=== PATIENT | female | born 1990 | race Caucasian/White ===

== ENCOUNTER 2019-04-06 10:05 | Inpatient (IN) | payer OTHER ==
[2019-04-06] MEDS ORDERED: LIDOCAINE 0.5% (PF) 5 MG/ML (50 ML SDV) SQ PRN (10:16)
[2019-04-06] MEDS ORDERED: METHYLERGONOVINE 0.2 MG/ML 1 ML AMP IM PRN (10:16)
[2019-04-06] MEDS ORDERED: CARBOPROST TROMETHAMINE 250 MCG/ML 1 ML AMP IM PRN (10:16)
[2019-04-06] MEDS ORDERED: TERBUTALINE 1 MG/ML VIAL SQ PRN (10:16)
[2019-04-06] MEDS ORDERED: OXYTOCIN 10 UNIT/ML 1 ML VIAL IM PRN (10:16)
[2019-04-06] MEDS ORDERED: OXYTOCIN 30 UNITS/500 ML NS 30 UNIT in SALINE 1 500ML.BAG IV SCH (10:30)
[2019-04-06] MEDS: LACTATED RINGERS 1,000 ML IV SCH ×3 (10:35→15:48)
[2019-04-06 11:01] VITALS: RESP 16; BMI 31.5
[2019-04-06 11:13] LABS: Basophils % (A) 0 %; Eosinophils # (A) 0.1 k/uL (0-0.7); Eosinophils % (A) 1 %; HCT 35.8 % (34.0-46.0); HGB 11.3 gm/dL (11.4-16.0); Lymphocytes # (A) 1.7 k/uL (1.0-4.8); Lymphocytes % (A) 18 %; MCH 29.6 pg (25.0-35.0); MCHC 31.7 g/dL (31.0-37.0); MCV 93.4 fL (80.0-100.0); Mean Platelet Volume 8.8; Monocytes # (A) 0.4 k/uL (0-1.0); Monocytes % (A) 4 %; Neutrophils % (A) 74 %; Platelet Count 156 k/uL (150-450); RBC 3.83 m/uL (3.80-5.40); WBC 9.4 k/uL (3.8-10.6)
--- NOTE | 2019-04-06 12:19 | P.HPOB ---
History of Present Illness H&P Date: 04/06/19 This is a 28 year old 4 para 2012 woman at 40-4/7 weeks' gestation. Estimated due date is 04/02/2019 based on LMP consistent with second trimester ultrasound. She was seen for routine visit and monitoring for postdates status and was found to have an amniotic fluid index less than 6 cm. She has a favorable cervix therefore is admitted for induction of labor. Her has been otherwise uncomplicated. She had a previous with macrosomia however ultrasound for growth monitoring in this shows estimated weights consistently less than 50th percentile. She otherwise has been feeling well and denies regular contractions, vaginal bleeding, leakage of fluids. She reports good movement. Laboratory data: Blood type O+, group B strep negative. antibody screen negative, rubella immune, VDRL nonreactive, hepatitis B surface antigen negativ e, gonorrhea and clinic cultures negative, HIV negative, glucose tolerance testing within normal limits, hemoglobin A1c 4.9. Obstetrical history: 2012 39 week 8 lbs. 8 oz., 2015 40 weeks 9 lbs. 11 oz. , SAB with D&C in 2011. Review of Systems All systems: negative Past Medical History Past Medical History: No Reported History Additional Past Medical History / Comment(s): 2012, 2015 History of Any Multi-Drug Resistant Organisms: None Reported Past Surgical History: Adenoidectomy, Tonsillectomy Additional Past Surgical History / Comment(s): D&C Additional Past Anesthesia/Blood Transfusion Reaction / Comment(s): HAs never recieved blood products Past Psychological History: No Psychological Hx Reported Smoking Status: Never smoker Past Alcohol Use History: None Reported Past Drug Use History: None Reported - Past Family History Mother Family Medical History: Hypertension Medications and Allergies Home Medications Medication Instructions Recorded Confirmed Type Pnv,Calcium 72/Iron/Folic Acid 1 tab PO ONCE 07/22/16 04/06/19 History [ Plus Tablet] Allergies Allergy/AdvReac Type Severity Reaction Status Date / Time No Known Allergies Allergy Verified 04/06/19 10:15 Exam Vital Signs Temp Pulse Resp BP Pulse Ox 04/06/19 10:15 97.7 F 88 16 115/63 99 Intake and Output 04/05/19 04/06/19 04/06/19 22:59 06:59 14:59 Other: Weight 80.739 kg Targeted physical exam is performed. This is a pleasant and comfortable appearing female who is visibly gravid. Estimated weight is 7-7-1/2 pounds. Infant is in vertex presentation. Cervix is 5-6 cm dilated, 70% effaced, vertex in the -2 station. Artificial rupture membranes undertaken and clear fluid is noted. heart tones are currently category 1. She is very irregularly neymar. Results Result Diagrams: 04/06/19 10:30 Abnormal Lab Results - Last 24 Hours (Table) 04/06/19 Range/Units 10:30 Hgb 11.3 L (11.4-16.0) gm/dL Assessment and Plan (1) Post term over 40 weeks Current Visit: No Status: Acute Code(s): O48.0 - POST-TERM SNOMED Code(s): 809633353 (2) Oligohydramnios Current Visit: Yes Status: Acute Code(s): O41.00X0 - OLIGOHYDRAMNIOS, UNSP TRIMESTER, NOT APPLICABLE OR UNSP SNOMED Code(s): 58237340 Plan: 28-year-old 4 para 2011 woman admitted at 40-4/7 weeks' gestation for postdates induction of labor with mild oligohydramnios. status is currently reassuring by external monitoring and she is irregularly neymar. Pitocin induction of labor has been initiated per protocol. She may have an epidural anesthetic upon request in active labor. She is group B strep negative and Rh+. I anticipate normal spontaneous vaginal delivery.
[2019-04-06] MEDS ORDERED: SODIUM CHLORIDE 0.9% 100 ML BAG ONE (15:25)
[2019-04-06] MEDS ORDERED: fentaNYL (PF) 50 MCG/ML 5 ML AMP ONE (15:25)
[2019-04-06] MEDS ORDERED: ROPIVACAINE 5MG/ML 20ML VIAL ONE (15:25)
[2019-04-06] MEDS ORDERED: ACETAMINOPHEN TAB 325 MG TAB PO PRN (16:57)
[2019-04-06] MEDS ORDERED: LANOLIN CREAM 5 GM TUBE TOPICAL PRN (16:57)
[2019-04-06] MEDS ORDERED: WITCH HAZEL 1 EACH MED..PAD TOPICAL PRN (16:57)
[2019-04-06] MEDS ORDERED: SIMETHICONE 80 MG CHEWABLE PO PRN (16:57)
[2019-04-06] MEDS ORDERED: diphenhydrAMINE 50 MG/ML 1 ML VIAL IVP PRN ×2 (16:57)
[2019-04-06] MEDS ORDERED: diphenhydrAMINE 50 MG CAP PO PRN (16:57)
[2019-04-06] MEDS ORDERED: ZOLPIDEM 5 MG TAB PO PRN (16:57)
[2019-04-06] MEDS ORDERED: diphenhydrAMINE 25 MG CAP PO PRN (16:57)
[2019-04-06] MEDS ORDERED: HYDROCORTISONE 2.5% RECTAL CREAM 30 GM TUBE RECTAL PRN (16:57)
[2019-04-06] MEDS ORDERED: IBUPROFEN 600 MG TAB PO PRN (16:57)
[2019-04-06] MEDS ORDERED: BENZOCAINE/MENTHOL SPRAY 1 GM/SPRAY AEROSOL TOPICAL PRN (16:57)
--- NOTE | 2019-04-06 16:57 | P.PROBDLV ---
Vaginal Delivery Note - . Vaginal Delivery Note: Findings: Female in the vertex right occiput anterior position with Apgars of 9 at 1 minute and 9 at 5 minutes weighing 8 lbs. 5 oz., 3760 g. Intact perineum. Intact, three-vessel cord placenta. EBL 150 mL's. Delivery summary: This is a 28-year-old 4 para 2012 woman who is admitted at 40-4/7 weeks' gestation for induction of labor secondary to postdates and oligohydramnios. She had a favorable cervix. She was admitted and a Pitocin induction of labor was started. She was 5+ centimeters on admission. She underwent artificial rupture of membranes at approximately 12:15 PM. The clear fluid was noted at that time. She did develop a regular c ontraction pattern and received an epidural anesthetic. She then made rapid progression to complete cervical dilation by 1630. She had a dense epidural however excellent maternal effort to push. Overall she had category 1 heart tones during the majority of her first stage of labor however with her rapid progression to complete cervical dilation after her epidural she did have some repetitive variable decelerations with good return to baseline and variability. She had an approximately 10 minute second stage of labor. When she was she was repositioned, prepped and draped in the dorsal modified Elizabeth position. The head then delivered with maternal effort from the right occiput anterior position. Nose and mouth were bulb suctioned on the perineum. The anterior followed by the posterior shoulders were then delivered without difficulty. The rest the was delivered onto the field where the nose and mouth were further bulb suctioned. The had immediate cry and was pink. Infant was placed on the maternal abdomen and the cord was clamped and cut. Apgars were 9 at 1 minute and 9 at 5 minutes. Staff Attorney was in the room for delivery secondary to possible light meconium-stained fluid however no intervention was required. Following approximately 10 minute third stage of labor the patient then delivered an intact, three-vessel cord placenta. The uterus was massaged and noted to be firm at the level of the umbilicus. Pitocin was administered following the third stage of labor. The perineum, vagina and cervix were reinspected and no further lacerations were noted. Both mother and were doing well post delivery in the room. All counts were correct.
[2019-04-06] MEDS ORDERED: OXYTOCIN 20 UNITS/1000 ML NS 1,000 ML IV SCH (17:00)
[2019-04-06] MEDS: SENNOSIDES-DOCUSATE SODIUM 1 EACH TAB PO SCH (19:36)
[2019-04-07 07:41] LABS: Basophils % (A) 0 %; Eosinophils # (A) 0.1 k/uL (0-0.7); Eosinophils % (A) 1 %; HCT 31.5 % (34.0-46.0); Lymphocytes # (A) 2.1 k/uL (1.0-4.8); Lymphocytes % (A) 18 %; MCH 29.8 pg (25.0-35.0); MCHC 31.8 g/dL (31.0-37.0); MCV 93.5 fL (80.0-100.0); Mean Platelet Volume 8.9; Monocytes # (A) 0.8 k/uL (0-1.0); Monocytes % (A) 7 %; Neutrophils # (A) 8.7 k/uL (1.3-7.7); Neutrophils % (A) 72 %; Platelet Count 143 k/uL (150-450); RBC 3.37 m/uL (3.80-5.40); RDW 15.9 % (11.5-15.5)
--- NOTE | 2019-04-07 08:58 | P.DS ---
Providers Date of admission: 04/06/19 10:05 Expected date of discharge: 04/07/19 Attending physician: Palmira Clement Primary care physician: Stated None - Discharge Diagnosis(es) (1) Post term over 40 weeks Current Visit: No Status: Acute (2) Oligohydramnios Current Visit: Yes Status: Acute (3) Normal spontaneous vaginal delivery Current Visit: Yes Status: Acute Hospital Course: This is a 28-year-old 4 now para 3013 woman who was admitted at 40-4/7 weeks' gestation for postdates induction of labor with oligohydramnios. Following admission she underwent a Pitocin induction of labor per protocol. She underwent artificial rupture of membranes and very light thin meconium- stained fluid was noted. She received an epidural anesthetic and had a rapid and unremarkable progression to complete cervical dilation. She had a 10 minute second stage deliver a liveborn female over an intact perineum. Apgars were 9 at 1 minute and 9 at 5 minutes and weight was 8 lbs. 5 oz. Please see the delivery summary for details. The patient's course was entirely unremarkable. By the morning of day #1 she was breast-feeding successfully, her pain was well controlled, her vital signs were stable and her lochia was minimal. She was therefore discharged home with routine instructions for care and follow-up. Patient Condition at Discharge: Good Plan - Discharge Summary New Discharge Prescriptions: No Action Pnv,Calcium 72/Iron/Folic Acid [ Plus Tablet] 1 tab PO ONCE Discharge Medication List Pnv,Calcium 72/Iron/Folic Acid [ Plus Tablet] 1 tab PO ONCE 07/22/16 [History]
[2019-04-07] MEDS: SENNOSIDES-DOCUSATE SODIUM 1 EACH TAB PO SCH (10:30)
[2019-04-07 17:29] VITALS: BP 101/50; PULSE 70; TEMP 98.2
== END 2019-04-07 17:20 | disposition home or self-care (01) | DRG 806 ==
LOC: 4FBP 10:05
PROVIDERS: ADMIT Obstetrics & Gynecology; ATTEND Obstetrics & Gynecology
PROC: 10E0XZZ Delivery of Products of Conception, External Approach (ICD-10-PCS; principal; 2019-04-06)
PROC: 10907ZC Drainage of Amniotic Fluid, Therapeutic from Products of Conception, Via Natural or Artificial Opening (ICD-10-PCS; 2019-04-06)
PROC: 3E033VJ Introduction of Other Hormone into Peripheral Vein, Percutaneous Approach (ICD-10-PCS; 2019-04-06)
PROC: 00HU33Z Insertion of Infusion Device into Spinal Canal, Percutaneous Approach (ICD-10-PCS; 2019-04-06)
PROC: 3E0R3BZ Introduction of Anesthetic Agent into Spinal Canal, Percutaneous Approach (ICD-10-PCS; 2019-04-06)
DX: O48.0 Post-term pregnancy (principal); O41.03X0 Oligohydramnios, third trimester, not applicable or unspecified; Z37.0 Single live birth; O76 Abnormality in fetal heart rate and rhythm complicating labor and delivery; O77.0 Labor and delivery complicated by meconium in amniotic fluid; Z3A.40 40 weeks gestation of pregnancy; Z82.49 Family history of ischemic heart disease and other diseases of the circulatory system
CPT/HCPCS: 85025; 86850; 86900; 86901

== ENCOUNTER 2022-07-03 15:13 | Inpatient (IN) | payer OTHER ==
--- NOTE | 2022-07-03 15:28 | ED ---
General Adult HPI - General Chief complaint: Abdominal Pain Stated complaint: appendicitis Time Seen by Provider: 07/03/22 15:13 Source: patient, RN/MD, EMS, RN notes reviewed, old records reviewed (Reviewed records from [facility]) Mode of arrival: EMS Limitations: no limitations - History of Present Illness Initial comments: Patient is a pleasant 31-year-old female presenting to the emergency Department as a transfer from [facility] with concern for appendicitis. I did discuss the case with Dr. Cardenas prior to patient transfer. Patient complains of abdominal discomfort since yesterday. Discomfort was 9/10 however is only mild at this time. Patient has had some nausea and vomiting. Discomfort is right lower quadrant. Patient received Ancef and Flagyl. Patient did have computed tomography scan done reported by Dr. Cardenas as appendicitis, questionable small perforation. - Related Data Home Medications Medication Instructions Recorded Confirmed Pnv,Calcium 72/Iron/Folic Acid 1 tab PO ONCE 07/22/16 04/06/19 [ Plus Tablet] Previous Rx's Medication Instructions Recorded Ibuprofen [Motrin] 600 mg PO Q6HR PRN tab 04/07/19 Allergies Allergy/AdvReac Type Severity Reaction Status Date / Time No Known Allergies Allergy Verified 07/03/22 15:20 Review of Systems ROS Statement: Those systems with pertinent positive or pertinent negative responses have been documented in the HPI. ROS Other: All systems not noted in ROS Statement are negative. Constitutional: Denies: fever Eyes: Denies: eye pain ENT: Denies: ear pain Respiratory: Denies: cough Cardiovascular: Denies: chest pain Endocrine: Denies: fatigue Gastrointestinal: Reports: as per HPI, abdominal pain, nausea, vomiting Genitourinary: Denies: dysuria Musculoskeletal: Denies: back pain Skin: Denies: lesions Neurological: Denies: weakness Past Medical History Past Medical History: No Reported History Additional Past Medical History / Comment(s): 2012, 2016 History of Any Multi-Drug Resistant Organisms: None Reported Past Surgical History: Adenoidectomy, Tonsillectomy Additional Past Surgical History / Comment(s): D&C Additional Past Anesthesia/Blood Transfusion Reaction / Comment(s): HAs never recieved blood products Past Psychological History: No Psychological Hx Reported Smoking Status: Never smoker Past Alcohol Use History: None Reported Past Drug Use History: None Reported - Past Family History Mother Family Medical History: Hypertension General Exam Limitations: no limitations General appearance: alert, in no apparent distress Head exam: Present: normocephalic Eye exam: Present: normal appearance Neck exam: Present: normal inspection Respiratory exam: Present: normal lung sounds bilaterally Cardiovascular Exam: Present: regular rate, normal rhythm GI/Abdominal exam: Present: soft, tenderness (Mild tenderness right lower quadrant). Absent: distended Extremities exam: Present: normal inspection. Absent: pedal edema, calf tenderness Neurological exam: Present: alert Psychiatric exam: Present: normal affect, normal mood Skin exam: Present: normal color Course Vital Signs 07/03/22 15:15 Temperature 99.1 F Pulse Rate 89 Respiratory 18 Rate Blood Pressure 114/62 O2 Sat by Pulse 100 Oximetry Medical Decision Making - Medical Decision Making Patient updated. Case was discussed with Dr. Shen, who will admit and does recommend changing from Ancef and Flagyl to Rocephin and Flagyl. He will will review the films. - Radiology Data Radiology results: report reviewed (CT abdomen and pelvis shows large abnormal soft tissue attenuation with a couple of air bubbles. Small free fluid. Other etiologies possible.) Disposition Clinical Impression: Acute appendicitis Disposition: ADMITTED IP TO THIS HOSP Is patient prescribed a controlled substance at d/c from ED?: No Referrals: None,Stated [Primary Care Provider] - 1-2 days Time of Disposition: 15:47
[2022-07-03] MEDS ORDERED: HYDROmorphone 1 MG/ML 1 ML SYRINGE IVP PRN (15:49)
[2022-07-03] MEDS ORDERED: NALOXONE 0.4 MG/ML 1 ML VIAL IV PRN ×2 (15:49→16:49)
[2022-07-03] MEDS ORDERED: ONDANSETRON 4 MG/2 ML VIAL IVP PRN (15:49)
[2022-07-03] MEDS ORDERED: HYDROmorphone 0.5 MG/0.5 ML SYRINGE IVP PRN (15:49)
[2022-07-03] MEDS: SODIUM CHLORIDE 0.9% 1,000 ML IV SCH (16:37)
--- NOTE | 2022-07-03 16:45 | P.GSHP ---
History of Present Illness H&P Date: 07/03/22 Chief Complaint: Acute abdominal pain, abnormal computed tomography scan of abdomen and pelv Patient is a 31-year-old lady transferred to [facility] emergency department the afternoon of 07/03/2022 from [facility] for further evaluation of abdominal pain. She tells me that she's had of less than 48 hour history of progressive right lower quadrant abdominal pain accompanied by nausea, nonbloody emesis, and anorexia. She hasn't had similar symptoms in the past. It seemed like her pain reached a plateau and has improved a bit of over the past several hours. She does tell me that on the ambulance ride over the bumps in the road did seem to exacerbate things. She has not undergone previous endoscopy no previous abdominal surgeries. No known personal or family history of inflammatory bowel disease. No known personal history of heart attack, s troke, DVT or pulmonary embolus, she's not maintained on any manner ORAL anticoagulants. Laboratory studies from the referring institution were reviewed. Metabolic panel including liver function studies were normal on all counts. She had a markedly leukocytosis at 19.4 thousand, hemoglobin 13.1, platelet count 215. MCV, MCH, and RDW indices were within normal limits. Urinalysis showed 2+ blood, 3+ ketones, 2+ bilirubin, nitrites and leukocyte esterase negative. Urine screen negative. Computed tomography scan of the abdomen and pelvis images and official report were reviewed. Her appendix looks a bit elongated, I see what appears to represent a contained perforation along the mid aspect with a significant adjacent inflammatory frail phlegmon and what appears to be some reactive thickening of the adjacent terminal ileum. There is a minimal amount of free fluid in the pelvis, no discrete free air. No significant visceral lymphadenopathy seen. I would favor contained acute appendicitis with rupture over a complicated inflammatory bowel disease. She's been afebrile and hemodynamically stable. She's been started on broad-spectrum antibiotics with Rocephin and Flagyl. - Review of Systems All systems: negative - Constitutional Constitutional: Reports as per HPI Past Medical History Past Medical History: No Reported History Additional Past Medical History / Comment(s): 2012, 2016 History of Any Multi-Drug Resistant Organisms: None Reported Past Surgical History: Adenoidectomy, Tonsillectomy Additional Past Surgical History / Comment(s): D&C Additional Past Anesthesia/Blood Transfusion Reaction / Comment(s): HAs never recieved blood products Past Psychological History: No Psychological Hx Reported Smoking Status: Never smoker Past Alcohol Use History: None Reported Past Drug Use History: None Reported - Past Family History Mother Family Medical History: Hypertension Medications and Allergies Home Medications Medication Instructions Recorded Confirmed Type No Known Home Medications 07/03/22 07/03/22 History Allergies Allergy/AdvReac Type Severity Reaction Status Date / Time No Known Allergies Allergy Verified 07/03/22 16:09 Surgical - Exam Osteopathic Statement: *. No significant issues noted on an osteopathic st ructural exam other than those noted in the History and Physical/Consult. Vital Signs Temp Pulse Resp BP Pulse Ox 99.1 F 89 18 114/62 100 07/03/22 15:15 07/03/22 15:15 07/03/22 15:15 07/03/22 15:15 07/03/22 15:15 - General well developed, well nourished, no distress - Eyes PERRL, normal ocular movement - ENT normal pinna, normal nares, normal mucosa, no hearing loss, no congestion - Neck trachea midline, no lymphadectomy, no venous distension - Respiratory normal expansion, normal respiratory effort, clear to auscultation - Cardiovascular Rhythm: regular - Abdomen There is moderate focal right lower quadrant tenderness over McBurney's point. No guarding or rebound, trace positive Rovsing sign. No evidence of diffuse peritonitis. Abdomen: soft - Integumentary no rash, no abnormal pigmentation - Neurologic normal coordination, normal sensation - Psychiatric oriented to time, oriented to person, oriented to place, speech is normal, memory intact Results - Imaging CT scan - abdomen: report reviewed, image reviewed CT scan - pelvis: report reviewed, image reviewed Assessment and Plan Assessment: 31-year-old lady with a clinical history, physical exam, laboratory studies and imaging most suggestive of an acute appendicitis with contained rupture. Alternatively may relate to complicated inflammatory bowel disease but this is less favored. Associated leukocytosis, no hard signs of sepsis as of yet. Plan: Options for treatment were discussed with the patient. I offered her initial laparoscopic exploration, anticipated appendectomy, likely drain placement, possible open surgery versus IV antibiotics with short interval imaging follow- up to assess for organized abscess. She preferred to move forward with surgery and gave informed consent for the same after discussion of risks, benefit alternatives to treatment. She'll be admitted to my care, I'm told the earliest available opening in the operating room is can be around 10 PM this evening. In the meantime she'll be maintained on IV antibiotics with IV fluids running. We will obtain a repeat set of labs. I expect her to be in the hospital through the weekend. Time with Patient: Greater than 30
[2022-07-03] MEDS: metroNIDAZOLE-NS PMX 500 MG in SALINE 1 100ML.BAG IVPB SCH ×2 (17:33→23:24)
[2022-07-03 18:19] LABS: ALT 14 U/L (4-34); AST 20 U/L (14-36); African American GFR (CKD) >90 (>60 ml/min/1.73 sqM); Albumin 3.7 g/dL (3.5-5.0); Albumin/Globulin Ratio 1.3; Alkaline Phosphatase 61 U/L (38-126); Anion Gap 11 mmol/L; Blood Urea Nitrogen 8 mg/dL (7-17); Calcium 8.6 mg/dL (8.4-10.2); Carbon Dioxide 24 mmol/L (22-30); Chloride 102 mmol/L (98-107); Globulin 2.9 g/dL; Glucose 93 mg/dL (74-99); Non-African American GFR(CKD) >90 (>60 ml/min/1.73 sqM); Potassium 3.7 mmol/L (3.5-5.1); Sodium 137 mmol/L (137-145); Total Bilirubin 0.7 mg/dL (0.2-1.3); Total Protein 6.6 g/dL (6.3-8.2)
[2022-07-03] MEDS ORDERED: SUCCINYLCHOLINE CHLORIDE 200 MG/10 ML VIAL IV ONE (18:56)
[2022-07-03] MEDS ORDERED: PHENYLEPHRINE-0.9% NACL SYG 1,000 MCG/10 ML SYRINGE ONE (18:56)
[2022-07-03] MEDS ORDERED: PROPOFOL 10 MG/ML 20 ML VIAL IV ONE (18:56)
[2022-07-03] MEDS ORDERED: KETOROLAC 30 MG/ML 1 ML VIAL ONE (18:56)
[2022-07-03] MEDS ORDERED: ROCURONIUM 10 MG/ML (5 ML VIAL) IV ONE (18:56)
[2022-07-03] MEDS ORDERED: ONDANSETRON 4 MG/2 ML VIAL ONE (18:56)
[2022-07-03] MEDS ORDERED: GLYCOPYRROLATE 0.2 MG/ML 2 ML VIAL ONE (18:56)
[2022-07-03] MEDS ORDERED: fentaNYL (PF) 50 MCG/ML 2 ML AMP ONE (18:56)
[2022-07-03] MEDS ORDERED: MIDAZOLAM 2 MG/2 ML VIAL ONE (18:56)
[2022-07-03] MEDS ORDERED: NEOSTIGMINE 1 MG/ML 10 ML VIAL ONE (18:56)
[2022-07-03] MEDS ORDERED: DEXAMETHASONE SOD PHOS (MDV) 100 MG/10 ML VIAL ONE (18:56)
[2022-07-03] MEDS ORDERED: HEPARIN SODIUM,PORCINE 5,000 UNIT/ML 1 ML VIAL ONE (18:56)
[2022-07-03] MEDS ORDERED: LIDOCAINE 2% INJ 20 MG/ML (2 ML VIAL) ONE (18:56)
[2022-07-03 19:15] LABS: Basophils % (A) 0 %; Eosinophils # (A) 0.1 k/uL (0-0.7); Eosinophils % (A) 1 %; HCT 37.2 % (34.0-46.0); HGB 12.4 gm/dL (11.4-16.0); Lymphocytes # (A) 1.5 k/uL (1.0-4.8); Lymphocytes % (A) 11 %; MCH 31.8 pg (25.0-35.0); MCHC 33.3 g/dL (31.0-37.0); MCV 95.7 fL (80.0-100.0); Mean Platelet Volume 8.8; Monocytes # (A) 0.7 k/uL (0-1.0); Monocytes % (A) 5 %; Neutrophils # (A) 11.3 k/uL (1.3-7.7); Neutrophils % (A) 82 %; Platelet Count 190 k/uL (150-450); RBC 3.88 m/uL (3.80-5.40); WBC 13.7 k/uL (3.8-10.6)
[2022-07-03] MEDS ORDERED: IV FLUID CONTINUATION 1,000 ML IV ONE (19:19)
[2022-07-03] MEDS ORDERED: BUPIVACAINE (PF) 0.25% 30 ML VIAL SQ ONE (19:31)
[2022-07-03] MEDS ORDERED: LACTATED RINGERS 1,000 ML IV ONE (19:46)
[2022-07-03] MEDS ORDERED: BACITRACIN OINT 1 EACH PACKET TOPICAL ONE (19:55)
--- NOTE | 2022-07-03 20:20 | P.OP ---
Date of Procedure: 07/03/22 Preoperative Diagnosis: Acute appendicitis Postoperative Diagnosis: Acute appendicitis with gangrene and contained rupture Procedure(s) Performed: Laparoscopic appendectomy and drain placement Anesthesia: STEFANIA Surgeon: Cristino Shen Estimated Blood Loss (ml): 5 Pathology: other (Appendix admitted to pathology, intra-abdominal fluid submitted for Gram stain and cultures.) Condition: stable Disposition: PACU Indications for Procedure: Patient is a 31-year-old lady who [facility] with less than 48 hours of progressive focal right lower quadrant pain with nausea and anorexia. She had a pronounced leukocytosis at 19,000. Her pain seemed to improve a bit right before her arrival here. Computed tomography scan of the abdomen and pelvis was obtained that [facility], images and report reviewed. It seemed to show an elongated appendix with contained rupture, no discrete abscess formation and a small amount of fluid in the pelvis. Clinical history, physical exam, and laboratory findings were all compelling for acute appendicitis with rupture. She wished to move forward with surgery and gave informed consent for the same after discussion of risks, benefit and alternatives to treatment. She received appropriate broad spectrum antibiotics preoperatively. Operative Findings: Acute appendicitis with gangrene and contained rupture. Description of Procedure: Patient was taken the operative suite and placed in supine position. Following induction of general endotracheal anesthesia she was prepped and draped in sterile fashion. Abdomen was entered in the left upper quadrant a Davidson's point after anesthetizing and incising skin. A 5 mm trocar was advanced under laparoscopic guidance, abdomen insufflated and surveyed. No apparent injury or bleeding were noted. A second 5 mm port was placed at the umbilical position, third at the suprapubic position under laparoscopic visualization. The palmers point port was upsized to 11 mm. There were some omental adhesions over the right lower quadrant and pelvis. These were taken down bluntly exposing a markedly indurated and inflamed appendiceal tip. As fibrinopurulent adhesions between the appendix, right pelvic sidewall, cecum and adjacent small bowel were taken down bluntly essential contained perforation was exposed without discrete abscess formation. Window was created bluntly at the base of the appendix and appendix divided at its confluence with the cecum with Endo ROB 10 tri-staple load. Mesoappendix and appendiceal artery were taken down with LigaSure. A sample of with a slightly dusky pelvic free fluid was submitted for culture, abdomen and pelvis irrigated and aspirated. Staple line was intact, hemostasis excellent. A 19-Greek Prosper drain was directed through the suprapubic port site with coverage over the right paracolic gutter and pelvis and the secured with 2-0 silk. Fascia at the palmers point port was closed with 0 Vicryl tie and Dangelo-Jose suture passer. Local anesthetic was administered to the posterior fascia under laparoscopic visualization effecting a JONATHAN Block at the site of the 12 mm trocar. Abdomen was desufflated, all ports withdrawn and skin over each trocar site closed with skin stapler. Drain was connected to suction and the patient transferred to the postanesthesia care unit in stable condition following extubation.
[2022-07-03] MEDS: LACTATED RINGERS 1,000 ML IV SCH (21:10)
[2022-07-03] MEDS: ACETAMINOPHEN TAB 325 MG TAB PO PRN (21:19)
[2022-07-03] MEDS: HEPARIN SODIUM,PORCINE/PF 5,000 UNIT/0.5 ML SYRINGE SQ SCH (23:23)
[2022-07-03] MEDS: KETOROLAC 15 MG/ML 1 ML VIAL IVP SCH (23:23)
[2022-07-04] MEDS: LACTATED RINGERS 1,000 ML IV SCH ×3 (00:42→20:03)
[2022-07-04] MEDS: SODIUM CHLORIDE 0.9% 1,000 ML IV SCH ×2 (00:42→07:56)
[2022-07-04] MEDS: KETOROLAC 15 MG/ML 1 ML VIAL IVP SCH ×4 (05:56→23:34)
[2022-07-04] MEDS: HEPARIN SODIUM,PORCINE/PF 5,000 UNIT/0.5 ML SYRINGE SQ SCH ×3 (07:55→23:33)
[2022-07-04] MEDS: metroNIDAZOLE-NS PMX 500 MG in SALINE 1 100ML.BAG IVPB SCH ×3 (07:55→23:33)
[2022-07-04] MEDS: PANTOPRAZOLE 40 MG/10 ML VIAL IV SCH (07:56)
[2022-07-04] MEDS: ACETAMINOPHEN TAB 325 MG TAB PO PRN (08:06)
[2022-07-04 08:57] LABS: Basophils # (A) 0.01 X 10*3/uL (0.00-0.10); Basophils % (A) 0.1 %; Eosinophils # (A) 0 X 10*3/uL (0.04-0.35); Eosinophils % (A) 0 %; HCT 31.8 % (37.2-46.3); HGB 10.5 g/dL (12.0-15.0); Immature Grans, Automated 0.4 %; Lymphocytes # (A) 0.47 X 10*3/uL (0.90-5.00); MCH 31.1 pg (27.0-32.0); MCV 94.1 fL (80.0-97.0); Mean Platelet Volume 10.6 fL (9.5-12.2); Monocytes # (A) 0.23 X 10*3/uL (0.20-1.00); Monocytes % (A) 2.5 %; NRBC Per 100 WBC 0 /100 WBCS (0.0-0.0); Neutrophils # (A) 8.62 X 10*3/uL (1.80-7.70); Platelet Count 182 X 10*3/uL (140-440); RBC 3.38 X 10*6/uL (4.10-5.20); RDW 13.1 % (11.5-14.5); WBC 9.37 X 10*3/uL (4.50-10.00)
[2022-07-04 09:05] LABS: ALT 10 U/L (8-44); AST 17 U/L (13-35); African American GFR (CKD) 148.2 (60.0-200.0); Albumin/Globulin Ratio 1.41 (1.60-3.17); Alkaline Phosphatase 53 U/L (41-126); BUN/Creat Ratio 15.34 Ratio (12.00-20.00); Blood Urea Nitrogen 7.7 mg/dL (9.0-27.0); Calcium 7.8 mg/dL (8.7-10.3); Carbon Dioxide 20.6 mmol/L (20.0-27.5); Chloride 104 mmol/L (96-109); Globulin 2.2 g/dL (1.6-3.3); Glucose 122 mg/dL (70-110); Non-African American GFR(CKD) 127.9 (60.0-200.0); Potassium 4.2 mmol/L (3.5-5.5); Sodium 136 mmol/L (135-145); Total Bilirubin <0.15 mg/dL (0.30-1.20); Total Protein 5.2 g/dL (6.2-8.2)
--- NOTE | 2022-07-04 12:02 | P.PN ---
Subjective Progress Note Date: 07/04/22 Principal diagnosis: Acute gangrenous appendicitis with rupture Patient seen and examined at bedside. Doing well today. Feeling better than before surgery. Some mild incisional pains with position changes and movement. Tolerated clear liquids this morning, starting to feel hungry. Admits to flatus, voiding without issue. Abdominal drain is in place with predominantly serous aspirate. She's had a hemodynamically stable and afebrile appearance overnight. Awaiting Gram stain and preliminary culture results on abdominal fluid aspirate obtained in the operating room last night. Presently on Rocephin and Flagyl for antibiotic coverage. Objective - Vital Signs Vital signs: Vital Signs Temp 97.9 F 07/04/22 08:00 Pulse 62 07/04/22 08:00 Resp 14 07/04/22 08:06 BP 82/45 07/04/22 08:00 Pulse Ox 100 07/04/22 08:00 FiO2 Intake & Output 07/03/22 07/04/22 07/04/22 18:59 06:59 18:59 Intake Total 900 118 Output Total 30 80 Balance 870 38 Weight 61.235 kg Intake: IV 900 Oral 118 Output: Drainage 80 Abdomen 80 Urine 25 Estimated Blood Loss 5 Other: Voiding Method Toilet Toilet # Voids 2 - Constitutional General appearance: Present: average body habitus, cooperative, no acute distress - EENT Eyes: Present: PERRLA ENT: Present: NA/AT - Respiratory Respiratory: bilateral: CTA - Cardiovascular Rhythm: regular - Gastrointestinal Gastrointestinal Comment(s): Abdomen soft, no significant tenderness to palpation, no guarding rebound or distention. Dressings in place without signs of bleeding. Exam improved compared to prior to surgery. - Neurologic Neurologic: Present: CNII-XII intact - Psychiatric Psychiatric: Present: A&O x's 3, appropriate affect, intact judgment & insight - Labs CBC & Chem 7: 07/04/22 05:34 07/04/22 05:34 Labs: Abnormal Lab Results - Last 24 Hours (Table) 07/03/22 07/03/22 07/04/22 Range/Units 17:54 17:54 05:34 WBC 13.7 H (3.8-10.6) k/uL RBC 3.38 L (4.10-5.20) X 10*6/uL Hgb 10.5 L (12.0-15.0) g/dL Hct 31.8 L (37.2-46.3) % Neutrophils # 11.3 H 8.62 H (1.3-7.7) k/uL Lymphocytes # 0.47 L (0.90-5.00) X 10*3/uL Eosinophils # 0 L (0.04-0.35) X 10*3/uL BUN (9.0-27.0) mg/dL Creatinine 0.51 L (0.52-1.04) mg/dL Glucose (70-110) mg/dL Calcium (8.7-10.3) mg/dL Total Bilirubin (0.30-1.20) mg/dL Total Protein (6.2-8.2) g/dL Albumin (3.8-4.9) g/dL Albumin/Globulin Ratio (1.60-3.17) g/dL 07/04/22 Range/Units 05:34 WBC (3.8-10.6) k/uL RBC (4.10-5.20) X 10*6/uL Hgb (12.0-15.0) g/dL Hct (37.2-46.3) % Neutrophils # (1.3-7.7) k/uL Lymphocytes # (0.90-5.00) X 10*3/uL Eosinophils # (0.04-0.35) X 10*3/uL BUN 7.7 L (9.0-27.0) mg/dL Creatinine 0.5 L (0.52-1.04) mg/dL Glucose 122 H (70-110) mg/dL Calcium 7.8 L (8.7-10.3) mg/dL Total Bilirubin <0.15 L (0.30-1.20) mg/dL Total Protein 5.2 L (6.2-8.2) g/dL Albumin 3.0 L (3.8-4.9) g/dL Albumin/Globulin Ratio 1.41 L (1.60-3.17) g/dL Microbiology - Last 24 Hours (Table) 07/03/22 19:45 Body Fluid Culture - Preliminary Aspirate 07/03/22 19:45 Anaerobic Culture - Preliminary Abdominal Fluid Assessment and Plan Assessment: Postoperative day 1 laparoscopic appendectomy with washout and drain placement for acute gangrenous appendicitis with contained rupture. Hemodynamically stable and afebrile, no evidence of sepsis. Awaiting preliminary culture results. Would appear that her postoperative ileus is clearing early. Plan: Advance to soft diet, IV fluids titrated down to 75 mL/h. Ambulate 3 times daily. Possible discharge as early as tomorrow. Will need follow-up arranged with either Dr. Low or Dr. Brewster within 1 week of discharge. Time with Patient: Greater than 30
[2022-07-05] MEDS: KETOROLAC 15 MG/ML 1 ML VIAL IVP SCH ×2 (05:20→12:45)
[2022-07-05 08:26] VITALS: RESP 14
[2022-07-05] MEDS: metroNIDAZOLE-NS PMX 500 MG in SALINE 1 100ML.BAG IVPB SCH (08:29)
[2022-07-05] MEDS: PANTOPRAZOLE 40 MG/10 ML VIAL IV SCH (08:30)
[2022-07-05] MEDS: HEPARIN SODIUM,PORCINE/PF 5,000 UNIT/0.5 ML SYRINGE SQ SCH (08:37)
[2022-07-05] MEDS: ACETAMINOPHEN TAB 325 MG TAB PO PRN (08:38)
--- NOTE | 2022-07-05 12:53 | P.DS ---
Providers Date of admission: 07/03/22 15:49 Expected date of discharge: 07/05/22 Attending physician: Cristino Shen DO Consults: 07/03/22 16:47 Consult Physician Routine Consulting Provider: [facility] Consult Reason/Comments: [facility] Do you want consulting provider notified?: Yes Primary care physician: Physician Nonstaff Hospital Course: Patient is a 31-year-old lady transferred to [facility] emergency department the afternoon of 07/03/2022 from [facility] for further evaluation of abdominal pain. She tells me that she's had of less than 48 hour history of progressive right lower quadrant abdominal pain accompanied by nausea, nonbloody emesis, and anorexia. She hasn't had similar symptoms in the past. It seemed like her pain reached a plateau and has improved a bit of over the past several hours. She does tell me that on the ambulance ride over the bumps in the road did seem to exacerbate things. She has not undergone previous endoscopy no previous abdominal surgeries. No known personal or family history of inflammatory bowel disease. No known personal history of heart attack, stroke, DVT or pulmonary embolus, she's not maintained on any manner ORAL anticoagulants. Computed tomography scan from outlying facility was consistent with acute appendicitis with contained rupture. Physical exam congruent with the same. Options for treatment were discussed and the patient elected to move forward with surgery and gave informed consent for the same after discussion of risks, benefits and alternatives to treatment. She received appropriate preoperative broad-spectrum antibiotics. Patient was taken from the emergency department to the operating room for laparoscopic appendectomy which proceeded without incident. There was evidence of a degree of gangrene and contained perforation. A small amount of murky fluid was aspirated and submitted for cultures. She was admitted to my care postoperatively to the medical surgical floor. She didn't display signs of sepsis or hemodynamic instability. She did quite well over her convalescence. She was advanced from clear liquids to a regular diet without issue. She remained hemodynamically stable and afebrile over the course of her stay. Patient was transitioned to Augmentin for a 7 day course at time of discharge given evidence of rupture. Gram stains and cultures were negative over the weekend. She was discharged home with instructions to follow up with either Dr. Bishop or Dr. Brewster in the office within 1 week, at that point I anticipate her drain will be removed. She may shower normally. I asked her to continue with a bland low-fat diet for a week or so and avoid any lifting over 10 pounds for 4 weeks. Should anticipate at least 1 week off from work. Assessment: Acute appendicitis with contained rupture Procedures: Laparoscopic appendectomy, washout and drain placement performed on date of presentation Patient Condition at Discharge: Stable Plan - Discharge Summary Discharge Rx Participant: No New Discharge Prescriptions: New Amoxic-Pot Clav 875-125Mg [Augmentin 875-125] 1 tab PO Q12HR 7 Days #2 tab Amoxic-Pot Clav 875-125Mg [Augmentin 875-125] 1 tab PO Q12HR 7 Days #14 tab Discharge Medication List Amoxic-Pot Clav 875-125Mg [Augmentin 875-125] 1 tab PO Q12HR 7 Days #14 tab 07/05/22 [Rx] Amoxic-Pot Clav 875-125Mg [Augmentin 875-125] 1 tab PO Q12HR 7 Days #2 tab 07/05/22 [Rx] Follow up Appointment(s)/Referral(s): None,Stated [REFERRING] - 1-2 days Elsa Brewster, [Doctor of Osteopathic Medicine] - 1 Week Activity/Diet/Wound Care/Special Instructions: May shower normally. Change dressings with bacitracin and Band-Aids twice daily and as needed. Keep drain to suction. No need to chart daily output Discharge Disposition: HOME SELF-CARE
[2022-07-05 13:42] VITALS: BP 121/78; PULSE 72; TEMP 97.8
== END 2022-07-05 14:37 | disposition home or self-care (01) | DRG 339 ==
LOC: EC 15:13 → 6NMEDSUR 15:49
PROVIDERS: ADMIT Surgery; ATTEND Surgery
PROC: 0DTJ4ZZ Resection of Appendix, Percutaneous Endoscopic Approach (ICD-10-PCS; principal; 2022-07-03 16:51)
DX: K35.32 Acute appendicitis with perforation, localized peritonitis, and gangrene, without abscess (principal); K56.7 Ileus, unspecified; K91.89 Other postprocedural complications and disorders of digestive system; K52.9 Noninfective gastroenteritis and colitis, unspecified
CPT/HCPCS: 80053; 84702; 85025; 87070; 87075; 87205; 88304; 99285